=== PATIENT | female | born 1965 | race American Indian/Alaskan Native ===

== ENCOUNTER 2016-07-26 08:35 | Day surgery (SDC) | payer MEDICAID ==
[2016-07-17 08:26] VITALS: BMI 25.0
[2016-07-26] MEDS ORDERED: Midazolam 2 MG/2 ML VIAL ONE (08:50)
[2016-07-26] MEDS ORDERED: Propofol 10 mg/ml Inj (20 ML) ONE (08:50)
[2016-07-26] MEDS ORDERED: cefOXitin IV 1 gm in Dextrose 50 ML IVPB ONE (09:37)
[2016-07-26] MEDS ORDERED: HYDROmorphone 0.5 mg/0.5 ml ISec IVP PRN (09:57)
[2016-07-26] MEDS ORDERED: Lactated Ringer's 1,000 ML IV SCH (10:00)
[2016-07-26] MEDS ORDERED: HYDROmorphone 0.5 mg/0.5 ml ISec ONE (10:00)
--- NOTE | 2016-07-26 10:04 | PCM.SURG1 ---
Surgeon's Initial Post Op Note - Surgeon's Notes Surgeon: dr anders Dean Of Student Services: none Type of Anesthesia: General LMA Anesthesia Administered By: dr castellano Pre-Operative Diagnosis: 51 yr with menorrhagia/end polyp Operative Findings: see the op reoprt Post-Operative Diagnosis: same with end polyp Operation Performed: d & c, hysyerscopy, pylpectomy Specimen/Specimens Removed: ecc. emc. polyp Estimated Blood Loss: EBL {In ML}: 20 Blood Products Given: N/A Drains Used: No Drains Post-Op Condition: Good Date of Surgery/Procedure: 07/26/16 Time of Surgery/Procedure: 09:45
--- NOTE | 2016-07-26 10:48 | OP ---
PROCEDURE DATE: 07/26/2016 PREOPERATIVE DIAGNOSIS: A 51-year-old 1, para 0 with menorrhagia, rule out endometrial polyp . POSTOPERATIVE DIAGNOSIS: A 51-year-old 1, para 0 with menorrhagia, rule out endometrial poly p. SURGEON: Yusuf Del Castillo MD [employer] SURGEON: None. ANESTHESIA: General anesthesia with LMA. ANESTHESIOLOGIST: Dr. Trevino. PROCEDURE PERFORMED: D and C, cystoscopy, polypectomy. ESTIMATED BLOOD LOSS: 20 mL. COMPLICATIONS: None. PROCEDURE: After informed consent was obtained, the patient was brought to the operating room, place d on the table where general anesthesia was given. When anesthesia was found to be adequate, she was prepped and draped in normal sterile fashion. Examination was performed found the uterus to be abou t 7-8 week size, no vulvar or adnexal masses. Anterior lip of the cervix was grasped with the tenacu lum. Gentle dilatation of the cervix was done. Hysteroscope was introduced, found the polyp on the posterior wall of the uterus. Pictures were taken. Hysteroscope was removed. Sharp curretage was do ne to take out the polyp, was sent to pathology. Then, the ECC was done and then sharp curretage fro m all the [place] of the uterus was scraped. Moderate tissue was found. It was sent to patholog y. Hysteroscope was introduced again. There was found to be no polyps. Then the tenaculum was taken out. The patient tolerated the procedure well. Lap, sponge, instruments correct x 2. Yusuf Del Castillo MD cc: [id number] TT: 07/26/2016 10:48:00 vadim
[2016-07-26 12:26] VITALS: BP 115/65; PULSE 77; RESP 18; TEMP 98.2; O2SAT 97
== END 2016-07-26 12:20 | disposition home or self-care (01) ==
LOC: C.SDS 08:35
PROVIDERS: ATTEND Obstetrics & Gynecology
DX: N84.0 Polyp of corpus uteri (principal); N92.0 Excessive and frequent menstruation with regular cycle
CPT/HCPCS: 58558; 88305; J1100; J1170; J2250; J2405; J2704; J3010